=== PATIENT | female | born 1955 | race Caucasian/White ===

== ENCOUNTER 2024-07-18 16:42 | Inpatient (IN) | payer MEDICARE ==
[~2024-07-18] VITALS: Ht 162.5 cm; Wt 80.7 kg
[2024-07-18 16:47] VITALS: BP 151/82
[2024-07-18 17:41] LABS: BASO % 0.3 % (0.0-1.0); EOS # 0.1 10*3/uL (0.0-0.4); EOS % 0.6 % (1.0-4.0); HEMATOCRIT 41.5 % (37.0-47.0); MEAN CELL VOLUME 88.5 fl (81.0-99.0); MEAN CORPUSCULAR HGB 28.1 pg (27.0-31.0); MEAN CORPUSCULAR HGB CONC 31.8 g/dl (33.0-37.0); MEAN PLATELET VOLUME 9.7 fl (9.6-12.3); MONO % 9.4 % (3.0-9.0); NEUT # 7.8 10*3/uL (2.3-7.9); NEUT % 76.5 % (47.0-73.0); PLATELET COUNT AUTOMATED 298 10*3/uL (130-400); RED BLOOD COUNT 4.69 10*6/uL (4.10-5.10); RED CELL DISTRI WIDTH 14.8 % (0-14.5); WHITE BLOOD COUNT 10.2 10*3/uL (4.8-10.8)
[2024-07-18 17:46] LABS: BILIRUBIN Negative (Negative); BLOOD 2+ (Negative); CLARITY Cloudy (Clear); COLOR Yellow (Yellow); GLUCOSE Negative (Negative); KETONE 2+ (Negative); LEUKO ESTERASE Trace (Negative); NITRITE Negative (Negative); SPECIFIC GRAVITY 1.025 (1.001-1.030)
[2024-07-18 17:53] LABS: URINE AMPHETAMINES Negative (1000ng/ml); URINE BARBITURATES Negative (200ng/ml); URINE BENZODIAZEPINES Negative (200ng/ml); URINE CANNABINOIDS (THC) Negative (50ng/ml); URINE COCAINE Negative (300ng/ml); URINE METHADONE Negative (300ng/ml); URINE OPIATES Negative (300ng/ml); URINE PHENCYCLIDINE Negative (25ng/ml)
[2024-07-18 17:54] LABS: BACTERIA 2+; EPITHELIAL CELLS 21-30; RBC 31-40 rbc/hpf (0-2)
[2024-07-18 17:55] LABS: MUCOUS 1+
[2024-07-18 18:09] LABS: ALKALINE PHOSPHATASE 129 U/L (46-116); BUN 16 mg/dl (9-23); CHLORIDE 102 mmol/L (98-107); POTASSIUM 3.7 mmol/L (3.4-5.1); SGPT/ALT 19 U/L (5-49); TOTAL PROTEIN 7.4 gm/dL (6.0-8.0)
[2024-07-18 18:15] LABS: ETHYL ALCOHOL < 3.0 mg/dl (<3)
[2024-07-18] MEDS ORDERED: CEFDINIR 300 MG CAP PO ONE (18:25)
[2024-07-18] MEDS ORDERED: DEPAKOTE SPRIN125 MG PO (21:24)
[2024-07-18] MEDS ORDERED: CITALOPRAM10 MG PO (21:25)
[2024-07-18] MEDS ORDERED: MELATONIN3 MG PO (21:26)
[2024-07-18] MEDS ORDERED: BUSPIRONE10 MG PO (21:27)
[2024-07-18] MEDS ORDERED: hydrOXYzine hydrochloride 50 MG/ML VIAL IM PRN (21:30)
[2024-07-18] MEDS ORDERED: LORazepam 1 MG TAB PO PRN (21:30)
[2024-07-18] MEDS ORDERED: Ziprasidone Mesylate 20 MG VIAL IM PRN (21:35)
[2024-07-18] MEDS ORDERED: Water, Sterile 10 ML VIAL IM PRN (21:35)
[2024-07-18] MEDS ORDERED: MG-AL HYDROXIDE/SIMETICONE 30 ML UDC PO PRN (21:55)
[2024-07-18] MEDS ORDERED: Magnesium Hydroxide 30 ML UDC PO PRN (21:55)
[2024-07-18] MEDS ORDERED: Menthol/Zinc Oxide 4 GM THIN T PRN (22:00)
[2024-07-18 22:20] VITALS: BP 140/71
[2024-07-18] MEDS ORDERED: Fosfomycin Tromethamine 3 GM PDS PO ONE (23:05)
[2024-07-19] MEDS ORDERED: Fosfomycin Tromethamine 3 GM PDS PO ONE (05:35)
[2024-07-19 06:12] LABS: BASO % 0.2 % (0.0-1.0); EOS # 0.1 10*3/uL (0.0-0.4); EOS % 1.4 % (1.0-4.0); HEMATOCRIT 38.6 % (37.0-47.0); MEAN CELL VOLUME 89.6 fl (81.0-99.0); MEAN CORPUSCULAR HGB 28.1 pg (27.0-31.0); MEAN CORPUSCULAR HGB CONC 31.3 g/dl (33.0-37.0); MONO # 0.9 10*3/uL (0.1-1.0); MONO % 11.1 % (3.0-9.0); NEUT # 5.5 10*3/uL (2.3-7.9); NEUT % 65.7 % (47.0-73.0); PLATELET COUNT AUTOMATED 271 10*3/uL (130-400); RED BLOOD COUNT 4.31 10*6/uL (4.10-5.10); RED CELL DISTRI WIDTH 14.7 % (0-14.5); WHITE BLOOD COUNT 8.4 10*3/uL (4.8-10.8)
[2024-07-19 07:27] LABS: VITAMIN D, 25-HYDROXY 43.2 ng/mL (30-100)
[2024-07-19 07:49] LABS: ALKALINE PHOSPHATASE 109 U/L (46-116); BUN 15 mg/dl (9-23); CHLORIDE 101 mmol/L (98-107); CHOLESTEROL 150 mg/dL (<200); LDL CHOLESTEROL 93 mg/dL (9-159); POTASSIUM 3.7 mmol/L (3.4-5.1); SGPT/ALT 15 U/L (5-49); TOTAL PROTEIN 6.5 gm/dL (6.0-8.0); TRIGLYCERIDES 81 mg/dl (<150)
[2024-07-19 08:00] VITALS: BP 88/59
[2024-07-19] MEDS ORDERED: DIVALPROEX SODIUM 125 MG CAP PO SCH (09:00)
[2024-07-19] MEDS ORDERED: MED. FROM HOME 1 EACH EA PO SCH (09:00)
[2024-07-19] MEDS ORDERED: PROTONIX40 MG PO (14:08)
[2024-07-19] MEDS ORDERED: TRANSDERM-SCOP1 EAC1 T (14:09)
[2024-07-19] MEDS ORDERED: GABAPENTIN100 M2 PO (14:10)
[2024-07-19] MEDS ORDERED: TRAMADOL HCL50 MG PO (14:10)
[2024-07-19] MEDS ORDERED: ZANTAC-360 (FAM20 MG PO (14:11)
[2024-07-19] MEDS ORDERED: LIPITOR40 MG PO (14:11)
[2024-07-19] MEDS ORDERED: Ondansetron8 MG PO (14:12)
[2024-07-19] MEDS ORDERED: TOPROL XL25 MG PO (14:13)
[2024-07-19] MEDS ORDERED: Scopolamine 1 PATCH PATCH T SCH (14:20)
[2024-07-19] MEDS ORDERED: Ondansetron Hydrochloride 4 MG TAB PO PRN (14:20)
[2024-07-19 20:00] VITALS: BP 116/64
[2024-07-19] MEDS ORDERED: Mirtazapine 15 MG TAB PO SCH (21:00)
[2024-07-19] MEDS ORDERED: Pantoprazole Sodium 40 MG TAB PO SCH (21:00)
[2024-07-19] MEDS ORDERED: GABAPENTIN 100 MG CAP PO SCH (21:00)
[2024-07-19] MEDS ORDERED: ATORVASTATIN CALCIUM 40 MG TABLET PO SCH (21:00)
[2024-07-20 08:00] VITALS: BP 103/65
[2024-07-20] MEDS ORDERED: METOPROLOL SUCCINATE XR 25 MG TAB PO SCH (09:00)
[2024-07-20] MEDS ORDERED: FAMOTIDINE 20 MG TAB PO SCH (09:00)
[2024-07-20 20:00] VITALS: BP 146/53
[2024-07-20] MEDS ORDERED: Mirtazapine 15 MG TAB PO SCH (21:00)
[2024-07-21 08:22] VITALS: BP 99/57
[2024-07-21 20:00] VITALS: BP 102/80
[2024-07-21] MEDS ORDERED: diphenhydrAMINE hydrochloride 25 MG CAP PO ONE (23:55)
[2024-07-22 08:00] VITALS: BP 108/55
[2024-07-22 20:00] VITALS: BP 118/65
[2024-07-22] MEDS ORDERED: MED. FROM HOME 1 EACH EA PO SCH (21:00)
[2024-07-23 08:00] VITALS: BP 91/65
[2024-07-23 20:00] VITALS: BP 102/54
[2024-07-23] MEDS ORDERED: RAMELTEON 8 MG TAB PO SCH (21:00)
[2024-07-24 08:00] VITALS: BP 106/65
[2024-07-24] MEDS ORDERED: Scopolamine 1 PATCH PATCH T SCH (12:20)
[2024-07-24] MEDS ORDERED: MED. FROM HOME 1 EACH EA PO SCH (15:00)
[2024-07-24 20:00] VITALS: BP 132/84
[2024-07-25 08:00] VITALS: BP 96/64
[2024-07-25] MEDS ORDERED: Aloe Vera/Carboxymethylcellu 44.3 ML CANS PO SCH (13:00)
[2024-07-25 20:00] VITALS: BP 99/76
[2024-07-25] MEDS ORDERED: rOPINIRole Hydrochloride 1 MG TAB PO SCH (21:00)
[2024-07-26 08:00] VITALS: BP 98/68
[2024-07-26] MEDS ORDERED: MED. FROM HOME 1 EACH EA PO SCH (08:00)
[2024-07-26 20:00] VITALS: BP 107/70
[2024-07-27 06:15] LABS: BASO # 0.1 10*3/uL (0.0-0.1); BASO % 0.7 % (0.0-1.0); EOS # 0.2 10*3/uL (0.0-0.4); EOS % 2.3 % (1.0-4.0); HEMATOCRIT 35.5 % (37.0-47.0); MEAN CELL VOLUME 91.5 fl (81.0-99.0); MEAN CORPUSCULAR HGB 29.4 pg (27.0-31.0); MEAN CORPUSCULAR HGB CONC 32.1 g/dl (33.0-37.0); MEAN PLATELET VOLUME 10.1 fl (9.6-12.3); MONO % 11.6 % (3.0-9.0); NEUT # 4.8 10*3/uL (2.3-7.9); NEUT % 58.8 % (47.0-73.0); PLATELET COUNT AUTOMATED 274 10*3/uL (130-400); RED BLOOD COUNT 3.88 10*6/uL (4.10-5.10); RED CELL DISTRI WIDTH 15.2 % (0-14.5); WHITE BLOOD COUNT 8.2 10*3/uL (4.8-10.8)
[2024-07-27 06:35] LABS: ALKALINE PHOSPHATASE 101 U/L (46-116); BUN 14 mg/dl (9-23); CHLORIDE 104 mmol/L (98-107); SGPT/ALT 12 U/L (5-49); TOTAL PROTEIN 5.6 gm/dL (6.0-8.0)
[2024-07-27 08:00] VITALS: BP 103/55
[2024-07-27 20:00] VITALS: BP 118/56
[2024-07-28 06:29] LABS: BASO # 0.1 10*3/uL (0.0-0.1); BASO % 0.7 % (0.0-1.0); EOS # 0.2 10*3/uL (0.0-0.4); EOS % 2.9 % (1.0-4.0); HEMATOCRIT 35.4 % (37.0-47.0); MEAN CELL VOLUME 89.8 fl (81.0-99.0); MEAN CORPUSCULAR HGB 28.9 pg (27.0-31.0); MEAN CORPUSCULAR HGB CONC 32.2 g/dl (33.0-37.0); MEAN PLATELET VOLUME 9.7 fl (9.6-12.3); MONO # 0.9 10*3/uL (0.1-1.0); MONO % 10.8 % (3.0-9.0); NEUT # 4.7 10*3/uL (2.3-7.9); NEUT % 58.2 % (47.0-73.0); PLATELET COUNT AUTOMATED 261 10*3/uL (130-400); RED BLOOD COUNT 3.94 10*6/uL (4.10-5.10); RED CELL DISTRI WIDTH 15.2 % (0-14.5)
[2024-07-28 06:58] LABS: BUN 13 mg/dl (9-23); CHLORIDE 104 mmol/L (98-107); POTASSIUM 4.1 mmol/L (3.4-5.1)
[2024-07-28 08:37] VITALS: BP 122/62
[2024-07-28 20:00] VITALS: BP 118/53
[2024-07-29 06:55] LABS: BASO % 0.5 % (0.0-1.0); EOS # 0.2 10*3/uL (0.0-0.4); EOS % 2.6 % (1.0-4.0); HEMATOCRIT 35.7 % (37.0-47.0); MEAN CELL VOLUME 90.4 fl (81.0-99.0); MEAN CORPUSCULAR HGB 28.9 pg (27.0-31.0); MEAN CORPUSCULAR HGB CONC 31.9 g/dl (33.0-37.0); MEAN PLATELET VOLUME 10.3 fl (9.6-12.3); MONO # 0.9 10*3/uL (0.1-1.0); MONO % 10.9 % (3.0-9.0); NEUT # 4.8 10*3/uL (2.3-7.9); NEUT % 60.1 % (47.0-73.0); PLATELET COUNT AUTOMATED 262 10*3/uL (130-400); RED BLOOD COUNT 3.95 10*6/uL (4.10-5.10); RED CELL DISTRI WIDTH 15.4 % (0-14.5)
[2024-07-29 07:54] LABS: BUN 11 mg/dl (9-23); CHLORIDE 104 mmol/L (98-107); POTASSIUM 4.1 mmol/L (3.4-5.1)
[2024-07-29 08:00] VITALS: BP 109/50
[2024-07-29] MEDS ORDERED: HOMEMED PO (09:26)
[2024-07-29] MEDS ORDERED: ROPINIROLE HYDRO1 MG PO (09:26)
[2024-07-29] MEDS ORDERED: RAMELTEON8 MG PO (09:26)
== END 2024-07-29 14:06 | disposition home or self-care (01) | DRG 885 ==
LOC: ED 16:42 → 3N 18:33
PROVIDERS: Counselor Professional; Emergency Medicine; ADMIT Psychiatry & Neurology Psychiatry; ATTEND Psychiatry & Neurology Psychiatry
PROC: GZHZZZZ Group Psychotherapy (ICD-10-PCS; principal; 2024-07-19)
PROC: GZ51ZZZ Individual Psychotherapy, Behavioral (ICD-10-PCS; 2024-07-19)
DX: F33.2 Major depressive disorder, recurrent severe without psychotic features (principal); N39.0 Urinary tract infection, site not specified; E44.0 Moderate protein-calorie malnutrition; F34.1 Dysthymic disorder; I10 Essential (primary) hypertension; M79.7 Fibromyalgia; F41.9 Anxiety disorder, unspecified; R13.10 Dysphagia, unspecified; B96.20 Unspecified Escherichia coli [E. coli] as the cause of diseases classified elsewhere; Z20.822 Contact with and (suspected) exposure to COVID-19; Z88.8 Allergy status to other drugs, medicaments and biological substances; Z83.6 Family history of other diseases of the respiratory system; Z68.30 Body mass index [BMI] 30.0-30.9, adult